=== PATIENT | male | born 1995 | race African-American/Black ===

== ENCOUNTER 2022-05-04 11:00 | Inpatient (IN) | payer OTHER ==
[~2022-05-04] VITALS: Ht 188 cm; Wt 67.8 kg
[2022-05-04] MEDS ORDERED: SODIUM CHLORIDE 0.9% 1000ML BAG (SEPSIS BOLUS) IV ONE (11:30)
[2022-05-04] MEDS ORDERED: MAGNESIUM/ALUMINUM HYDROXIDE/SIMETHICONE 30ML UDC PO ONE (12:00)
[2022-05-04] MEDS ORDERED: PANTOPRAZOLE SODIUM 40 MG/VIAL IV ONE (12:00)
[2022-05-04 12:21] LABS: HEMATOCRIT. 51.6 % (42.0-52.0); HEMOGLOBIN. 15.6 g/dL (14.0-18.0); MEAN CORPUSCULAR HEMOGLOBIN 26.5 pg (28.0-32.0); MEAN PLATELET VOLUME 10.2 fl (7.4-10.4); PLATELET 422 x1000/uL (130-400); RED BLOOD CELL COUNT 5.87 mill/uL (4.7-6.1); RED CELL DISTRIBUTION WIDTH 15.7 % (11.6-14.6)
[2022-05-04 12:32] LABS: INR 1.1; PARTIAL THROMBOPLASTIN TIME 32.9 sec (23.4-31.0); PROTHROMBIN TIME 11.3 sec (9.6-11.0)
[2022-05-04 12:34] LABS: CHLORIDE 97 mEq/L (98-107)
[2022-05-04 12:45] LABS: ETHANOL BLOOD < 10 mg/dL
[2022-05-04 12:53] LABS: PLATELET ESTIMATE INCREASED
[2022-05-04] MEDS ORDERED: CEFTRIAXONE 1 G PREMIX 50 ML IV ONE (13:00)
[2022-05-04] MEDS ORDERED: INSULIN REGULAR (DRIP) 100 UNITS in SODIUM CHLORIDE 0.9% 99 ML IV ONE (13:15)
[2022-05-04] MEDS ORDERED: ONDANSETRON HCL 4MG/2ML INJ IV ONE (14:45)
[2022-05-04] MEDS ORDERED: INSULIN REGULAR 100U/100ML PMX 100 ML IV SCH (14:45)
[2022-05-04] MEDS ORDERED: SODIUM CHLORIDE 0.9% 1,000 ML IV ONE (15:00)
[2022-05-04 15:13] LABS: BG BASE EXCESS -23.3 mmol/L (-2.0-2.0); BG CARBOXYHEMOGLOBIN 0.2 % (0.5-1.5); BG FRACTION INSPIRED OXYGEN 40; BG HCO3 ACT 3.7 mmol/L (22.0-26.0); BG METHEMOGLOBIN 0.3 % (0.0-1.5); BG OXYHEMOGLOBIN 98.5 % (94.0-97.0); BG PO2 171.9 mmHg (75.0-100.0); BG SAMPLE SITE RIGHT BRACHIAL; BG TOTAL HEMOGLOBIN 14.9 g/dL (12.0-18.0); BG VENT MODE NASAL CANNULA
[2022-05-04] MEDS ORDERED: SODIUM CHLORIDE 0.45% 1,000 ML IV SCH (18:45)
[2022-05-04] MEDS ORDERED: IPRATROPIUM/ALBUTEROL 0.5-3(2.5)MG/3ML NEB HHN PRN (18:45)
[2022-05-04] MEDS ORDERED: LORAZEPAM 0.5MG TABLET PO PRN (18:45)
[2022-05-04] MEDS ORDERED: ONDANSETRON HCL 4MG/2ML INJ IV PRN (18:45)
[2022-05-04] MEDS ORDERED: ACETAMINOPHEN 325MG TABLET PO PRN ×2 (18:45)
[2022-05-04] MEDS ORDERED: CLONIDINE 0.1MG TABLET PO PRN (18:45)
[2022-05-04] MEDS ORDERED: DOCUSATE SODIUM 100MG CAPSULE PO PRN (18:45)
[2022-05-04 19:03] LABS: PHOSPHORUS 6.3 mg/dL (2.5-4.9)
[2022-05-04] MEDS ORDERED: DEXTROSE 50% WATER 50ML SYRINGE IV PRN (19:15)
[2022-05-04] MEDS: BLOOD SUGAR DIAGNOSTIC STRIP TEST SCH ×5 (19:15→23:07)
[2022-05-04 20:45] VITALS: BP 136/88
[2022-05-04 21:00] VITALS: BP 152/101
[2022-05-04 21:15] VITALS: BP 134/98
[2022-05-04 21:43] LABS: CHLORIDE 111 mEq/L (98-107)
[2022-05-04 21:57] VITALS: BP 136/88
[2022-05-04 22:17] VITALS: BP 131/79
[2022-05-04] MEDS: HYDROCODONE/ACETAMINOPHEN 5/325MG TABLET PO PRN (22:17)
[2022-05-04] MEDS ORDERED: KCL 20MEQ/100ML PREMIX 100 ML IV NR (22:45)
[2022-05-04 23:00] VITALS: BP 121/83
[2022-05-04] MEDS: DEXT 5%/0.9% NACL KCL 20MEQ/L 1,000 ML IV SCH (23:13)
[2022-05-04] MEDS: INSULIN REGULAR 100U/100ML PMX 100 ML IV SCH ×2 (23:25→23:26)
[2022-05-05] VITALS (23 sets, daily range): BP systolic 109–147; BP diastolic 53–102
[2022-05-05] MEDS: BLOOD SUGAR DIAGNOSTIC STRIP TEST SCH ×22 (00:14→23:15)
[2022-05-05 04:12] LABS: CHLORIDE 111 mEq/L (98-107)
[2022-05-05] MEDS: DEXT 5%/0.9% NACL KCL 20MEQ/L 1,000 ML IV SCH ×2 (08:27→16:34)
[2022-05-05] MEDS: HYDROCODONE/ACETAMINOPHEN 5/325MG TABLET PO PRN (08:28)
[2022-05-05] MEDS ORDERED: NALOXONE HCL 0.4MG/ML VIAL IV PRN (10:00)
[2022-05-05] MEDS: VANCOMYCIN 1G PREMIX 200 ML IV SCH ×2 (14:20→21:55)
[2022-05-05] MEDS: INSULIN REGULAR 100U/100ML PMX 100 ML IV SCH ×5 (14:20→23:15)
[2022-05-05 16:01] LABS: CLARITY URINE CLEAR (CLEAR); COLOR URINE YELLOW (YELLOW); KETONES URINE 2+ (NEGATIVE); LEUKOCYTE ESTERASE URINE NEGATIVE (NEGATIVE); NITRITE URINE NEGATIVE (NEGATIVE); OCCULT BLOOD URINE NEGATIVE (NEGATIVE); PROTEIN URINE 1+ (NEGATIVE); SPECIFIC GRAVITY URINE 1.021 (1.005-1.030); UROBILINOGEN URINE 0.2 E.U./dL (0.2-1.0)
[2022-05-05 16:03] LABS: CHLORIDE 107 mEq/L (98-107)
[2022-05-05 16:22] LABS: *AMPHETAMINES SCREEN URINE NEGATIVE (NEGATIVE); *BARBITURATES SCREEN URINE NEGATIVE (NEGATIVE); *BENZODIAZEPINES SCREEN URINE NEGATIVE (NEGATIVE); *COCAINE SCREEN URINE NEGATIVE (NEGATIVE); CANNABINOID URINE SCREEN PRESUMTIVE POSITIVE (NEGATIVE); METHADONE URINE SCREEN NEGATIVE (NEGATIVE); OPIATES URINE SCREEN PRESUMTIVE POSITIVE (NEGATIVE); PHENCYCLIDINE URINE SCREEN NEGATIVE (NEGATIVE)
[2022-05-05] MEDS: KCL 20MEQ/100ML PREMIX 100 ML IV SCH ×2 (16:34→19:26)
[2022-05-05] MEDS: PIPERACILLIN/TAZOBACTAM 3.375 G in DEXTROSE 5% WATER 50 ML IV SCH ×2 (16:34→21:54)
[2022-05-05 21:00] LABS: CHLORIDE 104 mEq/L (98-107)
[2022-05-05] MEDS ORDERED: POTASSIUM CHLORIDE INJ 40 MEQ in DEXT 5% WATER 250 ML IV ONE (23:45)
[2022-05-06] VITALS (20 sets, daily range): BP systolic 110–152; BP diastolic 63–96
[2022-05-06] MEDS: KCL 20MEQ/100ML X 2 FOR TOTAL KCL 40MEQ/200ML IV SCH ×2 (00:12→03:04)
[2022-05-06] MEDS: INSULIN REGULAR 100U/100ML PMX 100 ML IV SCH ×8 (00:15→07:00)
[2022-05-06] MEDS: BLOOD SUGAR DIAGNOSTIC STRIP TEST SCH ×15 (00:15→21:00)
[2022-05-06] MEDS: DEXT 5%/0.9% NACL KCL 20MEQ/L 1,000 ML IV SCH ×3 (02:00→22:51)
[2022-05-06] MEDS: PIPERACILLIN/TAZOBACTAM 3.375 G in DEXTROSE 5% WATER 50 ML IV SCH ×3 (05:54→22:51)
[2022-05-06] MEDS: VANCOMYCIN 1G PREMIX 200 ML IV SCH ×4 (05:55→22:51)
[2022-05-06 12:13] LABS: HEMATOCRIT. 37.6 % (42.0-52.0); HEMOGLOBIN. 12.2 g/dL (14.0-18.0); MEAN CORPUSCULAR HEMOGLOBIN 25.8 pg (28.0-32.0); MEAN CORPUSCULAR VOLUME 79.4 fL (80.0-94.0); MEAN PLATELET VOLUME 9.5 fl (7.4-10.4); PLATELET 254 x1000/uL (130-400); RED BLOOD CELL COUNT 4.73 mill/uL (4.7-6.1); RED CELL DISTRIBUTION WIDTH 14.8 % (11.6-14.6)
[2022-05-06 12:23] LABS: CHLORIDE 104 mEq/L (98-107)
[2022-05-06 12:51] LABS: PLATELET ESTIMATE NORMAL
[2022-05-06] MEDS ORDERED: DEXTROSE 50% WATER 50ML SYRINGE IV PRN (15:00)
[2022-05-06] MEDS ORDERED: INSULIN GLARGINE 100 UNITS/ML SUBCUT NR (15:15)
[2022-05-06 16:21] LABS: CHLORIDE 101 mEq/L (98-107)
[2022-05-06] MEDS: KCL 20MEQ/100ML PREMIX 100 ML IV SCH ×3 (17:58→22:29)
[2022-05-06] MEDS: INSULIN LISPRO 100 UNITS/ML SUBCUT SCH ×2 (18:29→22:33)
[2022-05-07] VITALS (22 sets, daily range): BP systolic 91–158; BP diastolic 37–111
[2022-05-07 01:25] LABS: CHLORIDE 98 mEq/L (98-107)
[2022-05-07] MEDS: HYDROCODONE/ACETAMINOPHEN 5/325MG TABLET PO PRN ×3 (01:36→20:44)
[2022-05-07 05:43] LABS: HEMOGLOBIN. 11.9 g/dL (14.0-18.0); MEAN CORPUSCULAR HEMOGLOBIN 25.7 pg (28.0-32.0); MEAN CORPUSCULAR VOLUME 79.8 fL (80.0-94.0); MEAN PLATELET VOLUME 9.8 fl (7.4-10.4); PLATELET 270 x1000/uL (130-400); RED BLOOD CELL COUNT 4.64 mill/uL (4.7-6.1); RED CELL DISTRIBUTION WIDTH 14.5 % (11.6-14.6)
[2022-05-07 06:13] LABS: CHLORIDE 102 mEq/L (98-107)
[2022-05-07] MEDS: PIPERACILLIN/TAZOBACTAM 3.375 G in DEXTROSE 5% WATER 50 ML IV SCH (07:05)
[2022-05-07] MEDS: VANCOMYCIN 1G PREMIX 200 ML IV SCH (07:06)
[2022-05-07] MEDS: BLOOD SUGAR DIAGNOSTIC STRIP TEST SCH ×4 (07:50→21:35)
[2022-05-07 08:05] LABS: PLATELET ESTIMATE NORMAL
[2022-05-07] MEDS: INSULIN LISPRO 100 UNITS/ML SUBCUT SCH ×4 (08:16→21:40)
[2022-05-07] MEDS ORDERED: MORPHINE SULFATE 2 MG/ML CPJ (NOT FOR IM USE) IV PRN (10:30)
[2022-05-07] MEDS: INSULIN GLARGINE 100 UNITS/ML SUBCUT SCH ×2 (10:51→22:31)
[2022-05-07] MEDS: CLOTRIMAZOLE 1% CREAM 15GM TOP SCH (12:58)
[2022-05-07] MEDS: CEFAZOLIN 2,000 MG in DEXT 5% WATER 100 ML IV SCH ×3 (12:58→22:00)
[2022-05-07] MEDS: DEXT 5%/0.9% NACL KCL 20MEQ/L 1,000 ML IV SCH (17:58)
[2022-05-08] VITALS (9 sets, daily range): BP systolic 136–156; BP diastolic 73–106
[2022-05-08] MEDS: DEXT 5%/0.9% NACL KCL 20MEQ/L 1,000 ML IV SCH ×2 (02:00→10:20)
[2022-05-08] MEDS: CEFAZOLIN 2,000 MG in DEXT 5% WATER 100 ML IV SCH (05:33)
[2022-05-08] MEDS: BLOOD SUGAR DIAGNOSTIC STRIP TEST SCH (07:50)
[2022-05-08] MEDS: HYDROCODONE/ACETAMINOPHEN 5/325MG TABLET PO PRN (07:50)
[2022-05-08] MEDS ORDERED: LIDOCAINE HCL 1% 30ML VIAL (10MG/ML) ONE (08:05)
[2022-05-08] MEDS: CLOTRIMAZOLE 1% CREAM 15GM TOP SCH (08:44)
[2022-05-08] MEDS: INSULIN LISPRO 100 UNITS/ML SUBCUT SCH (08:46)
[2022-05-08] MEDS: INSULIN GLARGINE 100 UNITS/ML SUBCUT SCH (10:18)
== END 2022-05-08 10:45 | disposition left against medical advice (07) | DRG 720 ==
LOC: ER 12:55 → CVICU 15:08 → EDBEDREQ 15:13 → CANRESERV 18:05 → ENRESERV 18:05 → CANRESERV 18:11 → ENRESERV 18:11
PROVIDERS: ADMIT Internal Medicine; ATTEND Internal Medicine
PROC: 0S9C3ZX Drainage of Right Knee Joint, Percutaneous Approach, Diagnostic (ICD-10-PCS; principal; 2022-05-07)
DX: A41.01 Sepsis due to Methicillin susceptible Staphylococcus aureus (principal); E11.10 Type 2 diabetes mellitus with ketoacidosis without coma; E44.1 Mild protein-calorie malnutrition; E11.69 Type 2 diabetes mellitus with other specified complication; M86.661 Other chronic osteomyelitis, right tibia and fibula; L02.818 Cutaneous abscess of other sites; Z20.822 Contact with and (suspected) exposure to COVID-19; R65.20 Severe sepsis without septic shock; Z53.29 Procedure and treatment not carried out because of patient's decision for other reasons; Z68.1 Body mass index [BMI] 19.9 or less, adult; Z79.4 Long term (current) use of insulin; Z98.84 Bariatric surgery status
CPT/HCPCS: 20611; 36415; 36600; 71045; 73700; 74176; 80048; 80053; 80202; 80305; 80320; 81003; 82010; 82375; 82805; 82962; 83036; 83605; 83735; 83880; 84100; 84145; 84484; 85025; 86850; 86900; 87077; 87186; 87426; 88108; 89060; 93005; 93306; 99291; C1893; C9113; C9803; J0690; J0696; J1815; J2405; J2543; J3370; J3480; J3490; J7030; J7050; J7060; G0480